=== PATIENT | female | born 1955 | race Caucasian/White ===

== ENCOUNTER 2024-05-23 08:47 | Day surgery (SDC) | payer MEDICARE, BC ==
[2024-05-23] MEDS ORDERED: fentaNYL 100 MCG/2 ML SDV ONE (09:34)
[2024-05-23] MEDS ORDERED: Propofol 200 MG/20 ML SDV ONE (09:34)
[2024-05-23] MEDS: Sodium Chloride 0.9% 1,000 ML IV SCH (09:49)
== END 2024-05-23 12:09 | disposition home or self-care (01) ==
LOC: JP.SDS 08:47
PROVIDERS: ATTEND Surgery
DX: Z12.11 Encounter for screening for malignant neoplasm of colon (principal); N18.30 Chronic kidney disease, stage 3 unspecified
CPT/HCPCS: G0121; J2704; J3010; J7030; 00812-QZ